=== PATIENT | male | born 1940 | race Caucasian/White ===

== ENCOUNTER → 2016-12-26 | Outpatient (CLI) | payer MEDICARE, OTHER ==
[~2016-12-26] MED LIST: ASPIRIN CHEWABL81 MG PO; COREG 3.125M3.125 MG PO; COZAAR50 MG PO; FLOMAX 0.4 MG0.4 MG PO; LANTUS100 UNIT/1 SQ; METFORMIN HCL1000 MG PO; NEURONTIN 400400 MG PO; PERCOCET 10-321 EACH PO; TIROSINT88 MCG PO; ZANTAC300 MG PO
[2016-12-26 07:47] LABS: HEMOGLOBIN 14.7 gm/dl (14.0-17.5); RED BLOOD COUNT 4.75 M/UL (4.20-5.50); WHITE BLOOD COUNT 8.7 K/UL (4.5-11.0)
== END ==
LOC: CATH 06:12
PROVIDERS: Internal Medicine
DX: I20.8 Other forms of angina pectoris (principal); R94.39 Abnormal result of other cardiovascular function study; J44.9 Chronic obstructive pulmonary disease, unspecified; I10 Essential (primary) hypertension; E03.9 Hypothyroidism, unspecified; E11.9 Type 2 diabetes mellitus without complications; F41.9 Anxiety disorder, unspecified; J30.9 Allergic rhinitis, unspecified; Z79.82 Long term (current) use of aspirin; Z79.4 Long term (current) use of insulin; Z79.899 Other long term (current) drug therapy
CPT/HCPCS: 36415; 80048; 82962; 85025; 85610; 85730; 93005; 99152; C1769; C1894; J1644; J2250; J3010; J7030; Q9963